=== PATIENT | male | born 1975 | race Caucasian/White ===

== ENCOUNTER 2025-05-26 14:26 | Emergency (ER) | payer OTHER, SELFPAY ==
[2025-05-26 14:36] VITALS: BP 114/76; PULSE 74; TEMP 36.7; O2SAT 99; BMI 28.4
--- NOTE | 2025-05-26 14:45 | XR_ITS ---
The [address] [address] Patient Name: RUDY LOZANO MRN: [id number] date: 1975 Sex: M Assigned Patient Location: ER Current Patient Location: ED.MAIN Accession/Order Number: [id number] Exam Date: 05/26/2025 14:53 Report Date: 05/26/2025 16:05 At the request of: ROSA M MAGALLANES Procedure: XR hand LT min 3V 3 views left hand COMPARISON: None REASON FOR EXAM: Crush injury third digit FINDINGS: Transversely oriented fracture through the distal phalanx third digit noted with mild distraction and minimal comminution of the terminal tuft suspected. Focal soft tissue swelling. No definite radiopaque foreign body. Remaining osseous structures are intact. Joint spaces preserved. IMPRESSION: Distal phalangeal fracture involving the third digit Impression dictated by: Macario Garcia M.D. 05/26/2025 4:05 PM Dictation Location: [place] [address] Electronically authenticated by: [id number] Y Date: 05/26/2025 16:05
[2025-05-26] MEDS: ONDANSETRON 4 MG RAPDIS TABLET SL (14:55)
--- NOTE | 2025-05-26 15:09 | ED.GENADUL1 ---
HPI HPI - General Adult General Chief complaint: Wound/Laceration Stated complaint: L HAND LACERATION Time Seen by Provider: 05/26/25 14:42 Source: patient Mode of arrival: walk-in Limitations: no limitations History of Present Illness HPI narrative: Patient is a 49-year-old male that presents with complaints of left third digit crush injury and laceration from a wood splitter just prior to arrival. He had has a tetanus booster within the last 10 years. He does feel nauseous from the pain. Related Data Previous Rx's ?Medication ?Instructions ?Recorded cephalexin 500 mg capsule 500 mg PO Q6H 5 days #20 caps 05/26/25 Allergies Allergy/AdvReac Type Severity Reaction Status Date / Time No Known Drug Allergies Allergy Verified 05/26/25 14:36 Opioid HPI Opioid Management Most Recent Opioid Data: Last Pain Scale 6 Today, 15:30 Last SEP Pain Assessment Today, 15:11 Review of Systems ROS Status of ROS 10 or more systems reviewed and unremarkable except as noted in history and below PFSH PFSH Social History Little interest or pleasure in doing things: not at all Feeling down, depressed, or hopeless: not at all Exam Narrative Exam Narrative: General: No distress, age-appropriate Skin: Warm, dry, no pallor. No rash. < 0.5cm laceration to just proximal to the cuticle/nail, wound hemostatic Head: Normocephalic, atraumatic. Neck: Supple, non-tender. Eye: Pupils are equal, round and EOMI. No scleral icterus. Ears, Nose, Mouth, and Throat: No nasal mucosal hypertrophy. Oral mucosa is moist, no posterior oropharynx erythema, uvula is mid-line Cardiovascular: Regular Rate and Rhythm without murmur, gallop or rub. Respiratory: No accessory muscle use or respiratory distress. Musculoskeletal: Full ROM of all extremities, except some limited flexion of the left third digit secondary to swelling/pain. Full extension of the MCP, PIP, and DIP of the third digit. Crepitus with palpation. Less than 2-second capillary refill. Sensation intact distally with light touch. No calf or popliteal tenderness. Neurological: A&O x4. No cranial nerve dysfunction observed. No truncal ataxia. Moves all extremities. Sensation intact. Psychiatric: Cooperative and interactive. Normal mood and affect. Constitutional Vital Signs, click to edit/add: Last Vital Signs Temp 98.1 F 05/26/25 14:36 Pulse 74 05/26/25 14:36 Resp 18 05/26/25 14:36 BP 114/76 05/26/25 14:36 Pulse Ox 99 05/26/25 14:36 O2 Del Method Room Air 05/26/25 14:36 Documenting provider has reviewed patient's vital signs: yes Course Vital Signs Vital signs: Vital Signs Temperature 98.1 F 05/26/25 14:36 Pulse Rate 74 05/26/25 14:36 Respiratory Rate 18 05/26/25 14:36 Blood Pressure 114/76 05/26/25 14:36 Pulse Oximetry 99 05/26/25 14:36 Oxygen Delivery Method Room Air 05/26/25 14:36 Temperature 98.1 F 05/26/25 14:36 Pulse Rate 74 05/26/25 14:36 Respiratory Rate 18 05/26/25 14:36 Blood Pressure 114/76 05/26/25 14:36 Pulse Oximetry 99 05/26/25 14:36 Oxygen Delivery Method Room Air 05/26/25 14:36 Medical Decision Making MDM Narrative Medical decision making narrative: This is a 49-year-old male that presented to the ED with complaints of crush injury by a wood splitter just prior to arrival to his left third digit. There is a very small laceration just proximal to the cuticle/nail bed. Patient reports a lot of pain and some nausea with this. On arrival patient is in no distress, bleeding is controlled. The laceration is less than 0.5 cm, does not require repair. X-ray left hand ordered and reviewed and interpreted by myself as positive for a distal phalanx third digit tuft fracture. Rad read reads as transversely oriented fracture through the distal phalanx third digit noted with mild distraction and minimal comminution of the terminal tuft suspected. Left third open tuft fracture - X-ray left hand?read as above - IM Toradol given for pain, 4 mg ODT Zofran given for nausea - Small laceration, does not require repair. Tetanus up-to-date. - Open fracture, will treat with Keflex 500 mg 4 times daily x 5 days - Flexion and extension fully intact third digit, finger splint placed and nonstick dressing placed over the wound after wound irrigated and cleansed - Follow-up with Dr. Fan, Ortho on-call in 2-4 days for wound recheck. - Return to the ER precautions discussed with patient such as systemic symptoms such as fever, increasing erythema around wound, pain dea-fw-arrzpqg, purulent drainage from wound Patient discharged in stable condition with plan for close follow-up with Ortho for wound recheck. Differential Diagnosis Differential Diagnosis: Crush injury, laceration, phalanx fracture Imaging Data X-ray left hand: Attestation: I have reviewed the pertinent imaging results. My impression: Left third digit distal phalanx fracture, mildly distracted. No other fracture or dislocation noted. Discharge Plan Discharge Chief Complaint: Wound/Laceration Clinical Impression: Laceration, Open fracture of tuft of distal phalanx of finger Patient Disposition: Home, Self-Care Time of Disposition Decision: 15:01 Condition: Good Mode of Transportation: Private Vehicle Prescriptions / Home Meds: New cephalexin 500 mg capsule 500 mg PO Q6H 5 Days Qty: 20 0RF Print Language: Arabic Instructions: Finger Fracture (ED) Additional Instructions: Keep splint in place. Can remove for wound care. Gently wash daily with regular soap and water. Change dressing on daily. Monitor room for any increasing redness or drainage that starts to get thicker, back/brown, or foul-smelling. Referrals: Asif Fan MD [Physician, Orthopedics] - As soon as possible Referral Note: Call for follow up in 2-4 days for wound recheck. Discharge Date/Time: 05/26/25 16:08
[2025-05-26] MEDS: KETOROLAC TROMETHAMINE 30 MG/ML VIAL IM (15:11)
--- OUTSIDE RECORDS SUMMARY | 2025-05-26 15:18 | XMS_ITS | Clinical Summary ---
Author Organization [facility] Address [address] [place] [address] Care Team Providers Care Cabinetmaker Apprentice Name Role Phone Addis Paiz MD Primary Care Provider [phone] Allergies No known active allergies Medications MedicationSigDispense QuantityRefillsLast FilledStart DateEnd DateStatus latanoprost (Xalatan) 0.005 % ophthalmic solution Administer 1 drop into both eyes at /30/2025Active predniSONE (Deltasone) 10 MG tablet Take 10 mg by mouth if needed (He takes when he is pain, maybe will take once a month the whole series)5Active cetirizine (ZyrTEC) 5 MG chewable tablet Chew 5 mg DailyActive atorvastatin (Lipitor) 10 MG tablet Indications:Mixed hyperlipidemiaTake 1 tablet (10 mg) by mouth Daily 90 tablet 5Active Active Problems ProblemNoted DateDiagnosed OwxxKfafiasryrxoc76/05/2024Traumatic brain injury 06/24/2019 Encounters DateTypeDepartmentCare IyuwNwjmvgrcjco77/07/2025Telephone [facility] [address] [place] [address] Yenni Correa MA 03/18/2025bstract [facility] [address] [place] [address] Addis Paiz MD from Last 3 Months Family History Medical HistoryRelationNameCommentsDiverticulitisBrotherDiverticulitisMother RelationNameStatusCommentsBrotherMother Social History Tobacco UseTypesPacks/DayYears UsedDateSmoking Tobacco: FormerCigarettes 12/27/2018 - 12/27/1994Smokeless Tobacco: Never Tobacco Cessation:Counseling Given: Not Answered Alcohol UseStandard Drinks/WeekCommentsNever0 (1 standard drink = 0.6 oz pure alcohol)PHQ-2AnswerDate RecordedPatient Health Questionnaire-2 Jadyc95102/15/2025 Sex and Gender InformationValueDate RecordedSex Assigned at BirthNot on file Legal NzlPbba4210/10/2022 7:34 PM EDTGender IdentityNot on fileSexual Orientation Not on file Last Filed Vital Signs Vital SignReadingTime TakenCommentsBlood Mtntiawo760/80002/15/2025 8:46 AM EDT Rpsrm606702/15/2025 8:16 AM EDTTemperature--Respiratory Rate--Oxygen Gsjlmdglsj97% 02/15/2025 8:16 AM EDTInhaled Oxygen Concentration--Qhpmne78.2 kg (190 lb) 02/15/2025 8:16 AM UESQrllyb840.5 cm (5' 9.5 )06/28/2022 12:00 PM ESTBody Mass Index27.6606/28/2022 12:00 PM EST Plan of Treatment Health MaintenanceDue DateLast DoneCommentsCT Lgcnicgbdipo03/02/1975FIT-DNA 1975FIT1975FOBT1975 5187Fmqhhcnnyhsan22/02/1975Influenza Vaccine (#1)6202Clqulydcsjq80, 5Colorectal Cancer Vepenvdgj70/21/2035 Insurance Care Teams Team MemberRelationshipSpecialtyStart DateEnd Date Addis Paiz MD [address] [place] [address] [facility]
--- OUTSIDE RECORDS SUMMARY | 2025-05-26 15:18 | XMS_ITS | Clinical Summary ---
Author Organization [facility] Address [address] [place] [address] Care Team Providers Care Aerographer Name Role Phone Unavailable Primary Care Provider Unavailabl e Social History Tobacco UseTypesPacks/DayYears UsedDateSmoking Tobacco: Never AssessedSex and Gender InformationValueDate RecordedSex Assigned at BirthNot on fileLegal Sex Male01/24/2022 9:08 PM EDTGender IdentityNot on fileSexual OrientationNot on file Plan of Treatment Not on file
--- OUTSIDE RECORDS SUMMARY | 2025-05-26 15:18 | XMS_ITS | Clinical Summary ---
Author Organization [facility] Address [address] [place] [address], [address] [place] [address] Care Team Providers Care Hydraulic Assembler Name Role Phone Ok Early MD Primary Care Provider [phone] Allergies No known active allergies Medications MedicationSigDispense QuantityRefillsLast FilledStart DateEnd DateStatus ibuprofen (ADVIL;MOTRIN) 800 MG tablet Take 1 tablet by mouth every 8 hours as needed for Pain 30 tablet 01/07/2019Active Social History Tobacco UseTypesPacks/DayYears UsedDateSmoking Tobacco: Every DayCigarettes Smokeless Tobacco: NeverAlcohol UseStandard Drinks/WeekCommentsNever0 (1 standard drink = 0.6 oz pure alcohol)AUDIT-CAnswerDate RecordedFrequency of Alcohol TyrjplqzxoxWfhxy60/12/2019Average Number of DrinksNot on file01/07/2019 Frequency of Binge DrinkingNot on file01/07/2019Sex and Gender InformationValue Date RecordedSex Assigned at BirthNot on fileLegal XroHcts8409/07/2012 1:07 PM EST Gender IdentityNot on fileSexual OrientationNot on file Last Filed Vital Signs Vital SignReadingTime TakenCommentsBlood Hiyvxhik186/7206 6:54 PM EDT Qyjva6274 6:54 PM ALSTascnkczftv75 ??C (98.6 ??F)01/07/2019 6:04 PM EDT Respiratory Kscs0056 6:54 PM EDTOxygen Dtnlusdlvu06%01/07/2019 6:54 PM EDTInhaled Oxygen Concentration--Rsfglp11.9 kg (185 lb)01/07/2019 6:04 PM EDT Meruwl892.9 cm (6')01/07/2019 6:04 PM EDTBody Mass Index25.0901/07/2019 6:04 PM EDT Plan of Treatment Not on [place] [address] * Guarantor: [facility] COMMISSIONAccount TypeRelation to PatientDate of BirthPhoneBilling AddressCorporateOther [address] [place] [address] Care Teams Team MemberRelationshipSpecialtyStart DateEnd Ok Early MD [facility] Medicine01/07/19
--- OUTSIDE RECORDS SUMMARY | 2025-05-26 15:18 | XMS_ITS | Clinical Summary ---
Author Organization [facility] tem Address [facility] [address] [place] [address] Care Team Providers Care Refrigeration Manager Name Role Phone Urvashi Noriega COMMERCIAL CREDIT REVIEWER-[facility] Primary Care Provider Allergies No known active allergies Medications MedicationSigDispense QuantityRefillsLast FilledStart DateEnd DateStatus latanoprost (XALATAN) 0.005 % ophthalmic solution Administer 1 drop to both eyes nightly.Active acetaminophen (TYLENOL EXTRA STRENGTH) 500 mg tablet Take 2 tablets (1,000 mg total) by mouth every 6 (six) hours as needed for pain. Active predniSONE (DELTASONE) 10 mg tablet Take 1 tablet (10 mg total) by mouth as needed.5Active gabapentin (NEURONTIN) 100 mg capsule Take 1 capsule (100 mg total) by mouth daily as needed.Active Active Problems ProblemNoted DateDiagnosed FtwmFbimbrosv43/27/2019Traumatic brain injury 06/24/2019 Encounters DateTypeDepartmentCare CafvXvgzcjfdsbx92/21/2025 8:00 AM EDT - 03/18/2025 8:30 AM EDTSurgery [facility] [address] [place] [id number] Cody Escalante, DO COLONOSCOPY DIAGNOSTIC / ARHSGZUUG69/21/2025 7:43 AM EDTAnesthesia Event [facility] [address] [place] [address] Dipak Bentley MD 03/18/2025 6:08 AM EDT - 03/18/2025 8:34 AM EDTHospital Encounter [facility] - Surgery [address] [place] [address] Cody Escalante, DO Screening for cancer (Primary Dx) Discharge Disposition: Home03/18/20254909Gmiitz54/14/2025 12:30 PM EDTSupport Visit [facility] - Pre Admit [address] [facility] [facility] [place] [address] 03/03/2025 3:00 PM EDTOffice Visit [facility] [address] [place] [address] Zenaida Valencia, [facility] Encounter for screening colonoscopy (Primary Dx)03/03/2025Travelfrom Last 3 Months Family History Medical HistoryRelationNameCommentsNo Known ProblemsFatherDiverticulitisMaternal GrandmotherDiverticulitisMotherRelationNameStatusCommentsFatherAliveMaternal GrandmotherDeceasedMotherAlive Social History Tobacco UseTypesPacks/DayYears UsedDateSmoking Tobacco: FormerCigarettes Smokeless Tobacco: Never Tobacco Cessation:Counseling Given: Not Answered Comments:Quit 2021 Alcohol UseStandard Drinks/WeekCommentsYes0 (1 standard drink = 0.6 oz pure alcohol)socialChildcareAnswerDate ExvcqckqFcyelfnqeEmoeupj01/12/2019Employment AnswerDate SsrbxtewQvdxesaqeiTqlhlqf02/12/2019Purpose - LifeAnswerDate Recorded Purpose and direction in qjeuObyfsbh59/11/2021ex and Gender InformationValue Date RecordedSex Assigned at BirthNot on fileLegal BjdBgbw2403/03/2015 11:48 AM EDTGender IdentityNot on fileSexual OrientationNot on file Last Filed Vital Signs Vital SignReadingTime TakenCommentsBlood Yfxfxmla096/8103/18/2025 8:20 AM EDT Eregv405203/18/2025 6:54 AM IBWSsmqkgbefyr51 ??C (96.8 ??F)03/18/2025 7:57 AM EDT Respiratory Ybro164903/18/2025 8:20 AM EDTOxygen Sockitioym26%03/18/2025 8:20 AM EDTInhaled Oxygen Concentration--Atbwbf27.7 kg (200 lb)03/11/2025 2:03 PM EDT Twfblo664.8 cm (5' 10 )03/11/2025 2:03 PM EDTBody Mass Index28.7003/11/2025 2:03 PM EDT Plan of Treatment Health MaintenanceDue DateLast DoneCommentsDepression Wwqwetkgp45/02/1987Adult BMI Follow Up Plan1992DTaP,Tdap and Td Vaccines (2 - Td or Tdap)12/11/2023 12/10/2013Zoster (Shingles) Vaccine (1 of 2)2024Influenza Vaccine 5Adult BMI Nyqigwjjt33Tobacco Ofvzabmax66/21/2026 03/18/20254362Wmhycbwbpys63/21/203508/, 03/18/2025 Medical Devices ImplantedTypeAreaManufacturerDevice IdentifierShelf Expiration DateModel / Serial / LotLens Iol [id number] [facility] [id number] Implanted:Qty: 1 on 08/08/2023 by Racheal Hemphill MD at [facility] [employer]03/27/2027SY60WF.165 / / [id number] Iol [id number].170 [facility] - [id number] - [id number] Implanted:Qty: 1 on 08/27/2023 by Racheal Hemphill MD at [facility] [employer]01/29/2027SY60WF / [id number] / N/A Procedures Procedure NamePriorityDate/TimeAssociated DiagnosisCommentsCOLONOSCOPY DIAGNOSTIC / XJVDKOTZH74/21/2025 7:43 AM EDT Screening RBMLCJTPAZU27/21/2025 7:36 AM EDT PROVATION MGCJYISFQDNXeyjnan01/21/2025 6:53 AM EDT from Last 3 Months Results * Colonoscopy (03/18/2025 7:36 AM EDT)Specimen (Source)Anatomical Location / LateralityCollection Method / VolumeCollection TimeReceived Time03/18/2025 7:36 AM EDT Narrative PM CARDIOVASCULAR - 03/18/2025 7:55 AM EDT [facility] Patient Name: Medhat Phillips ?? Procedure Date No Time: 03/18/2025 ?? CSN : [id number] Date of : 1975 Admit Type: Outpatient Age: 49 Room: [facility] OR Gender: Male Note Status: Finalized Attending MD: Cody Escalante DO, Procedure: ? Colonoscopy Indications: ? Screening for colorectal malignant neoplasm Providers: ? Cody Escalante DO Referring MD: ?Cody Escalante DO Medicines: ? Propofol per Anesthesia Complications: ? No immediate complications. Procedure: ? After I obtained informed consent, the scope was ? passed under direct vision. Throughout the procedure, ? the patient's blood pressure, pulse, and oxygen ? saturations were monitored continuously. The OLYMNPUS ? -[id number] #[id number] ADULT COLONOSCOPE was introduced ? through the anus and advanced to the cecum, identified ? by appendiceal orifice and ileocecal valve. The ? colonoscopy was performed without difficulty. The ? patient tolerated the procedure well. The quality of ? the bowel preparation was excellent. Findings: ? The perianal and digital rectal examinations were normal. ? The colon (entire examined portion) appeared normal. ? The exam was otherwise without abnormality on direct and retroflexion ? views. Estimated Blood Loss: ??Estimated blood loss: none. Impression: ?- The entire examined colon is normal. ? - The examination was otherwise normal on direct and ? retroflexion views. ? - No specimens collected. Recommendation: ?- Written discharge instructions were provided to the ? patient. ? - The signs and symptoms of potential delayed ? complications were discussed with the patient. ? - Patient has a contact number available for ? emergencies. The signs and symptoms of potential ? delayed complications were discussed with the patient. ? Return to normal activities tomorrow. Written ? discharge instructions were provided to the patient. ? - Repeat colonoscopy in 10 years for screening ? purposes. ? - Return to my office PRN. Procedure Code(s): ? --- Professional --- ? G0121, Colorectal cancer screening; colonoscopy on ? individual not meeting criteria for high risk Diagnosis Code(s): ? --- Professional --- ? Z12.11, Encounter for screening for malignant neoplasm of colon CPT copyright 2022 [employer]. All rights reserved. The codes documented in this report are preliminary and upon data entry specialist review may be revised to meet current compliance requirements. DO Cody España DO 03/18/2025 7:54:58 AM Number of Addenda: 0 Note Initiated On: 03/18/2025 7:36 AM Procedure Note Cody Escalante DO - 03/18/2025 [facility] Patient Name: Medhat Phillips Procedure Date No Time: 03/18/2025 CSN : [id number] Date of : 1975 Admit Type: Outpatient Age: 49 Room: [place] [address] Gender: Male Note Status: Finalized Attending MD: Cody Escalante DO, Procedure: Colonoscopy Indications: Screening for colorectal malignant neoplasm Providers: Cody Escalante DO Referring MD: Cody Escalante DO Medicines: Propofol per Anesthesia Complications: No immediate complications. Procedure: After I obtained informed consent, the scope was passed under direct vision. Throughout theprocedure, the patient's blood pressure, pulse, and oxygen saturations were monitored continuously. TheAerie PharmaceuticalsRUST [id number] #[id number] ADULT COLONOSCOPE was introduced through the anus and advanced to the cecum,identified by appendiceal orifice and ileocecal valve. The colonoscopy was performed without difficulty. The patient tolerated the procedure well. The qualityof the bowel preparation was excellent. Findings: The perianal and digital rectal examinations were normal. The colon (entire examined portion) appeared normal. The exam was otherwise without abnormality on direct and retroflexion views. Estimated Blood Loss: Estimated blood loss: none. Impression: - The entire examined colon is normal. - The examination was otherwise normal on directand retroflexion views. - No specimens collected. Recommendation: - Written discharge instructions were provided tothe patient. - The signs and symptoms of potential delayed complications were discussed with the patient. - Patient has a contact number available for emergencies. The signs and symptoms of potential delayed complications were discussed with thepatient. Return to normal activities tomorrow. Written discharge instructions were provided to thepatient. - Repeat colonoscopy in 10 years for screening purposes. - Return to my office PRN. Procedure Code(s): --- Professional --- G0121, Colorectal cancer screening; colonoscopy on individual not meeting criteria for high risk Diagnosis Code(s): --- Professional --- Z12.11, Encounter for screening for malignant neoplasm of colon CPT copyright 2022 [employer]. All rights reserved. The codes documented in this report are preliminary and upon data entry specialist reviewmay be revised to meet current compliance requirements. DO Cody España DO 03/18/2025 7:54:58 AM Number of Addenda: 0 Note Initiated On: 03/18/2025 7:36 AM Authorizing ProviderResult TypeResult Major SIFUENTES PROCEDURE ORDERABLESFinal ResultPerforming OrganizationAddressCity/State/ZIP CodePhone Number PM CARDIOVASCULAR * Colonoscopy Report (03/18/2025 6:53 AM EDT)Specimen (Source)Anatomical Location / LateralityCollection Method / VolumeCollection TimeReceived Time Narrative SYSTEMGENERATED, DOCUMENTATION - 03/18/2025 6:53 AM EDT This order has been auto-finalized for image and report archival in PACs. *For full report details, please reach out to your physician. ??This image is visible to you in MyChart.* Authorizing ProviderResult TypeResult StatusMichael E Grillis DOIMG OR IMG ORDERABLESFinal Result from Last 3 Months Insurance Care Teams Team MemberRelationshipSpecialtyStart DateEnd Date Urvashi Noriega, COMMERCIAL CREDIT REVIEWER-ADDICTION SOCIAL WORKER [address] [place] [address] PCP - GeneralNurse Practitioner03/03/25
== END 2025-05-26 16:08 | disposition home or self-care (01) ==
PROVIDERS: Emergency Provider Emergency Medicine; Family Provider Family Medicine
DX: S62.633B Displaced fracture of distal phalanx of left middle finger, initial encounter for open fracture (principal); W23.0XXA Caught, crushed, jammed, or pinched between moving objects, initial encounter
CPT/HCPCS: 29130; 73130; 96372; 99284; J1885; Q0162